=== PATIENT | male | born 1980 | race African-American/Black ===

== ENCOUNTER 2017-09-02 09:48 | Emergency (ER) | payer SELFPAY ==
[~2017-09-02] VITALS: Ht 182.9 cm; Wt 83.9 kg
--- NOTE | 2017-09-02 11:41 | Diagnostic Imaging Report ---
PROCEDURE:X-RAY LEFT SHOULDER, COMPLETE COMPARISON:None. INDICATIONS:LEFT SHOULDER INJURY FINDINGS: Normal mineralization. No acute displaced fracture or dislocation. Joint spaces are preserved. No a.c. separation. Soft tissues are unremarkable. CONCLUSION: No acute abnormalities. Remigio Jarquin M.D. Dictated by: Remigio Jarquin M.D. on 09/02/2017 at 11:49 Electronically approved by: Remigio Jarquin M.D. on 09/02/2017 at 11:49
--- NOTE | 2017-09-02 12:17 | Diagnostic Imaging Report ---
Examination: CT BRAIN WITHOUT CONTRAST History:Head injury. Headache. Comparison studies:None Technique: Axial images were obtained from the skull base to the vertex. Coronal and sagittal images reconstructed from the axial data. Intravenous contrast: None Findings: Scalp: No abnormalities. Bones: No fractures, blastic or lytic lesions. Brain sulci: Appropriate for age. Ventricles: Normal in size and configuration. No hydrocephalus. Extra-axial space: No abnormalities. Parenchyma: No abnormal densities. No masses, hemorrhage, acute or chronic vascular insults. Sellar/suprasellar region: No abnormalities. Craniocervical junction: Patent foramen magnum. No Chiari one malformation. Incidental findings: None. Impression: No intracranial abnormalities. Signed by: Dr. Antonietta Ignacio M.D. on 09/02/2017 12:14 PM
== END 2017-09-02 13:28 | disposition left against medical advice (07) ==
LOC: ER 09:48
DX: M54.2 Cervicalgia (principal); S00.03XA Contusion of scalp, initial encounter; S40.012A Contusion of left shoulder, initial encounter; X58.XXXA Exposure to other specified factors, initial encounter; F17.210 Nicotine dependence, cigarettes, uncomplicated
CPT/HCPCS: 70450; 99281

== ENCOUNTER 2017-09-05 14:26 | Emergency (ER) | payer SELFPAY ==
[~2017-09-05] VITALS: Ht 182.9 cm; Wt 83.9 kg
--- NOTE | 2017-09-05 17:38 | Diagnostic Imaging Report ---
EXAMINATION: Head and cervical spine CT without contrast. HISTORY: Status post fall a week ago, head head and neck, head and neck pain COMPARISON: None. TECHNIQUE: Multidetector axial images were obtained without contrast from the foramen magnum to the vertex and through the cervical spine. The images were reconstructed using brain and bone algorithms. Thin section brain images were reformatted into coronal and sagittal planes. HEAD CT FINDINGS: Skull: No lytic or blastic lesions. No fractures. Parenchyma: Normal. No mass, hemorrhage or CT evidence of acute vascular insult. Brain volume: Normal for age. Ventricles: No hydrocephalus or displacement. Arteries: No density suggestive of thrombus. Dural sinuses: No abnormal density. Extra-axial spaces: No abnormal density. Foramen magnum: No mass, Chiari malformation, or basilar invagination. Sella: No obvious mass. Paranasal/mastoid sinuses: Imaged portions unremarkable. CERVICAL SPINE CT FINDINGS: Alignment:Normal alignment and lordosis. Soft tissues: Normal. Vertebrae: Normal height and density. No acute fracture, infection or neoplasm. Intervertebral disk degenerative changes: None IMPRESSION: Head CT: No acute posttraumatic intracranial abnormalities, particularly no hemorrhage. Cervical spine CT: No acute fractures or dislocations. Note: Acute postraumatic spinal cord, vascular or ligamentous injuries cannot be excluded on the basis of the current examination. Signed by: Dr. Vilma Yadav M.D. on 09/05/2017 5:35 PM
[2017-09-05 22:08] VITALS: BP 114/76
== END 2017-09-05 19:12 | disposition home or self-care (01) ==
LOC: ER 14:26
DX: S09.8XXA Other specified injuries of head, initial encounter (principal)
CPT/HCPCS: 70450; 72125; 99283